=== PATIENT | female | born 1995 | race Caucasian/White ===

== ENCOUNTER 2020-08-04 17:46 | Emergency (ER) | payer BC, OTHER ==
[~2020-08-04] VITALS: Ht 172.7 cm; Wt 59.8 kg
--- NOTE | 2020-08-04 18:47 | NUR ---
Pt ambulatory to imaging. Report MELINA Raines.
--- NOTE | 2020-08-04 19:28 | NUR ---
PATIENT RESTING IN BED IN NAD. 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 WILL CONTINUE TO MONITOR.
--- NOTE | 2020-08-04 19:52 | NUR ---
provider in room reviewing CXR with patient.
--- NOTE | 2020-08-04 20:21 | NUR ---
discharge instructions reviewed with patient. no further questions at this time. pain medication prescription sent to preferred pharmacy. all personal belongings with patient. ambulated to registration desk with steady gait.
[2020-08-04 20:28] VITALS: BP 110/68
== END 2020-08-04 20:30 | disposition home or self-care (01) ==
LOC: ED 20:15
DX: S29.012A Strain of muscle and tendon of back wall of thorax, initial encounter (principal); R11.10 Vomiting, unspecified; V00.328A Other snow-ski accident, initial encounter; Y93.89 Activity, other specified; Y92.89 Other specified places as the place of occurrence of the external cause; Y99.8 Other external cause status
CPT/HCPCS: 99283